=== PATIENT | female | born 1945 | race Caucasian/White ===

== ENCOUNTER 2022-03-08 15:42 | Inpatient (IN) | payer MEDICARE, OTHER ==
[2022-03-08 16:27] LABS: Actual Bicarbonate (HCO3v) 32 mEq/L (22-28); Calcium, Ionized (venous) 1.03 mmol/L (1.16-1.32); Chloride (VBG) 96 mmol/L (98-106); Hemoglobin (Hb) 8.8 g/dL (11.7-16.1); Puncture Site Other Site; Sodium 137.1 mmol/L (133-146); pH (venous) 7.35 (7.32-7.43)
[2022-03-08 16:34] LABS: #Monocytes 0.9 10x3/uL (0.0-1.1); #Neutrophils 12.8 10x3/uL (1.5-8.4); %Basophils 0.3 % (0.0-2.0); %Eosinophils 0.1 % (0.0-6.0); %Lymphocytes 5.3 % (18.0-47.0); %Monocytes 5.8 % (0.0-10.0); %Neutrophils 85.7 % (40.0-75.0); Hemoglobin 7.9 g/dL (12.0-15.5); Mean Corpuscular HGB CONC 29.2 g/dL (32.0-36.0); Mean Corpuscular Hemoglobin 24.9 pg (27.0-33.0); Mean Corpuscular Volume 85.5 fl (81.6-98.3); Mean Platelet Volume 11.2 fl (7.4-10.4); Platelet Count 317 10x3/uL (150-450); Red Blood Cell (RBC) Count 3.17 10x6/uL (3.90-5.03); White Blood Cell (WBC) Count 14.9 10x3/uL (3.5-10.5)
[2022-03-08 16:39] LABS: Albumin 3.4 g/dL (3.4-4.8); Alkaline Phosphatase 86 U/L (40-110); Anion Gap 23 mmol/L (10-20); BUN (Urea Nitrogen) 54 mg/dL (9.8-20.1); Bilirubin, Total 0.6 mg/dL (0.2-1.2); Calc. Creatinine Clearance 0 mL/min (70-130); Calcium 9.2 mg/dL (7.8-10.44); Carbon Dioxide 27 mmol/L (23-31); Chloride 95 mmol/L (98-107); Estimated GFR 15; Globulin 3.5 g/dL (2.4-3.5); Glucose 223 mg/dL (83-110); Protein, Total 6.9 g/dL (5.8-8.1); Sodium 138 mmol/L (136-145)
[2022-03-08 16:50] LABS: Bilirubin 3+ (Negative); Blood, Urine 10 (Negative); Clarity Cloudy (Clear); Glucose, Urine (Dipstick) Normal (Negative); Ketone, Urine Negative (Negative); Leukocyte 25 (Negative); Nitrite Negative (Negative); Protein, Urine (Dipstick) 30 mg/dl (Neg-Trace)
[2022-03-08 16:50] LABS: Potassium 7.1 mmol/L (3.5-5.1)
[2022-03-08 16:51] LABS: ALT (SGPT) 3921 U/L (8-55)
[2022-03-08 16:58] LABS: AST (SGOT) Greater than 3500 U/L (5-34)
[2022-03-08 17:03] LABS: Anisocytosis SLIGHT = 6-15 cells (100X) (0-5/hpf); Hypochromia SLIGHT = 6-15 cells (100X) (0-5/hpf); Platelet Morphology Comment Appears Adequate; Polychromasia SLIGHT = 2-3 cells (100X) (0-2/hpf)
[2022-03-08 17:04] LABS: Bacteria/HPF None Seen HPF (None Seen); RBC/HPF 0-3 HPF (0-3); Squamous Epithelial 0-3 HPF (0-3); WBC/HPF 0-3 HPF (0-3)
[2022-03-08 17:08] LABS: CKMB 1.1 ng/mL (0-6.6)
[2022-03-08 17:26] LABS: SARS-CoV-2 NAA Rapid Test Not Detected (NotDetected)
[2022-03-08] MEDS ORDERED: Calcium Chloride 1 GM/10 ML Abboject SYRINGE ONE (17:31)
[2022-03-08] MEDS ORDERED: Sodium Bicarb 50 MEQ/50 ML VIAL ONE ×4 (17:31→17:32)
[2022-03-08] MEDS ORDERED: Insulin Regular 300 UNITS/3 ML VIAL ONE (17:33)
[2022-03-08] MEDS ORDERED: Cefepime 2 GM VIAL ONE (17:33)
[2022-03-08] MEDS ORDERED: Dextrose 50% Abboject 50 ML SYRINGE ONE (17:33)
[2022-03-08] MEDS ORDERED: Acetylcysteine 20% (200mg/mL) 1 MG in Dextrose 5% in Water 200 ML IVPB SCH (18:00)
[2022-03-08 18:13] LABS: INR-International Normal Ratio 1.5; Prothrombin Time 15.6 sec (9.5-12.1)
[2022-03-08 18:15] LABS: Acetaminophen Less than 10.0 mcg/mL (10.0-30.0); Alcohol Less than 10 mg/dL (Less than 10); Salicylate Less than 8.0 mg/dL (15.0-30.0)
[2022-03-08 19:28] LABS: Lactic Acid 3.1 mmol/L (0.5-2.2)
[2022-03-08 19:33] LABS: Acetaminophen Less than 10.0 mcg/mL (10.0-30.0); Alcohol Less than 10 mg/dL (Less than 10); Salicylate Less than 8.0 mg/dL (15.0-30.0)
[2022-03-08 19:37] LABS: Troponin I 0.143 ng/mL (< 0.028)
[2022-03-08 19:38] LABS: Amphetamine Not Detected (NotDetected); Barbiturates Screen Not Detected (NotDetected); Benzodiazepine Screen Not Detected (NotDetected); Cocaine Metabolite Screen Not Detected (NotDetected); Methadone Not Detected (NotDetected); Methamphetamine Not Detected (NotDetected); Opiate Screen Not Detected (NotDetected); Oxycodone Screen Not Detected (NotDetected); Phencyclidine (PCP) Not Detected (NotDetected); THC/Cannabinoid Screen Not Detected (NotDetected); Tricyclic Screen Not Detected (NotDetected)
[2022-03-08 22:07] VITALS: BMI 52.9
[2022-03-08] MEDS ORDERED: DEXTROSE 5% IV SCH ×2 (22:30→23:30)
[2022-03-08] MEDS ORDERED: ACETYLCYSTEINE IV SCH ×2 (22:30→23:30)
[2022-03-08] MEDS ORDERED: WATER IV SCH ×2 (22:30→23:30)
[2022-03-09] MEDS ORDERED: Guaifenesin DM 100-10/5 ML UDCUP PO PRN (00:05)
[2022-03-09] MEDS ORDERED: Calcium Carbonate 500 MG ChewTAB PO PRN (00:05)
[2022-03-09] MEDS ORDERED: Ondansetron PF 4 MG/2 ML Vial IVP PRN (00:05)
[2022-03-09] MEDS ORDERED: Senokot S 8.6-50 MG TAB PO PRN (00:05)
[2022-03-09] MEDS ORDERED: HumaLOG 300 UNITS/3 ML VIAL SC PRN (00:15)
[2022-03-09] MEDS ORDERED: Pantoprazole 40 MG VIAL IVP SCH (00:15)
[2022-03-09] MEDS ORDERED: Dextrose 50% Abboject 50 ML SYRINGE SLOW IVP PRN (00:15)
[2022-03-09] MEDS ORDERED: Dextrose 5% in Water 1,000 ML IV PRN (00:15)
[2022-03-09] MEDS ORDERED: DEXTROSE 5% IV SCH ×2 (00:30→01:30)
[2022-03-09] MEDS ORDERED: WATER IV SCH ×2 (00:30→01:30)
[2022-03-09] MEDS ORDERED: ACETYLCYSTEINE IV SCH ×2 (00:30→01:30)
[2022-03-09 01:01] LABS: Hep A IgM AB Non-Reactive (NonReactive); Hep A IgM S/CO 0.19 S/CO (0-0.79); Hep C IgG Ab Non-Reactive (NonReactive)
[2022-03-09 01:29] LABS: Hep C Index 0.12 S/CO (0-0.79)
[2022-03-09 02:21] LABS: HBSAg Index 0.34 S/CO (0-0.99); Hep B Surf Ag Non-Reactive S/CO (NonReactive)
[2022-03-09] MEDS ORDERED: Acetylcysteine 20% (200mg/mL) 10,000 MG in Dextrose 5% in Water 950 ML IV SCH ×2 (03:30→05:30)
[2022-03-09 04:28] LABS: Lactic Acid 1.7 mmol/L (0.5-2.2)
[2022-03-09 04:32] LABS: Acetaminophen Less than 10.0 mcg/mL (10.0-30.0); Albumin 3.2 g/dL (3.4-4.8); Alkaline Phosphatase 85 U/L (40-110); Anion Gap 17 mmol/L (10-20); BUN (Urea Nitrogen) 36 mg/dL (9.8-20.1); Bilirubin, Total 0.8 mg/dL (0.2-1.2); CK (CPK) 62 U/L (29-168); Calc. Creatinine Clearance 47 mL/min (70-130); Calcium 8.8 mg/dL (7.8-10.44); Carbon Dioxide 29 mmol/L (23-31); Cardiac Risk 3.3 (Less than 4.5); Chloride 97 mmol/L (98-107); Cholesterol 87 mg/dl (< 200 Desired); Estimated GFR 20; Globulin 3.1 g/dL (2.4-3.5); Glucose 137 mg/dL (83-110); HDL Cholesterol 26 mg/dL (>60 Neg Risk); LDL Cholesterol, Calculated 47 mg/dL; Potassium 4.2 mmol/L (3.5-5.1); Protein, Total 6.3 g/dL (5.8-8.1); Sodium 139 mmol/L (136-145); Triglycerides 68 mg/dL (Less than 150)
[2022-03-09 04:34] LABS: INR-International Normal Ratio 1.4; PTT 25.9 sec (22.0-33.0); Prothrombin Time 14.5 sec (9.5-12.1)
[2022-03-09 04:47] LABS: ALT (SGPT) 4007 U/L (8-55)
[2022-03-09 04:48] LABS: AST (SGOT) Greater than 3500 U/L (5-34)
[2022-03-09 04:53] LABS: CKMB 1.9 ng/mL (0-6.6)
[2022-03-09] MEDS: Levothyroxine 150 MCG TAB PO SCH (05:36)
[2022-03-09 06:05] LABS: #Eosinphils 0.1 10x3/uL (0.0-0.5); #Monocytes 0.6 10x3/uL (0.0-1.1); #Neutrophils 10.5 10x3/uL (1.5-8.4); %Basophils 0.2 % (0.0-2.0); %Eosinophils 0.5 % (0.0-6.0); %Lymphocytes 9.9 % (18.0-47.0); %Monocytes 4.7 % (0.0-10.0); Hemoglobin 7.1 g/dL (12.0-15.5); Mean Corpuscular HGB CONC 30.5 g/dL (32.0-36.0); Mean Corpuscular Hemoglobin 25.2 pg (27.0-33.0); Mean Corpuscular Volume 82.6 fl (81.6-98.3); Mean Platelet Volume 11.3 fl (7.4-10.4); Platelet Count 303 10x3/uL (150-450); RBC Distribution Width 15.9 % (11.5-14.5); Red Blood Cell (RBC) Count 2.82 10x6/uL (3.90-5.03); White Blood Cell (WBC) Count 12.9 10x3/uL (3.5-10.5)
[2022-03-09] MEDS: Pantoprazole 40 MG VIAL IVP SCH ×2 (08:33→20:15)
[2022-03-09] MEDS: FLUoxetine HCl 20 MG CAP PO SCH ×2 (08:34→20:15)
[2022-03-09] MEDS: Metoprolol Tartrate 25 MG TAB PO SCH ×2 (08:35→20:15)
[2022-03-09] MEDS: hydrALAZINE 25 MG TAB PO SCH ×2 (08:35→20:15)
[2022-03-09] MEDS ORDERED: Vancomycin 1 GM in Premix Bag 1 BAG IVPB PRN (09:00)
[2022-03-09] MEDS ORDERED: Apixaban 5 MG TAB PO SCH ×2 (11:30→21:00)
[2022-03-09 12:23] LABS: #Basophils 0.1 10x3/uL (0.0-0.2); #Eosinphils 0.2 10x3/uL (0.0-0.5); #Monocytes 0.6 10x3/uL (0.0-1.1); #Neutrophils 10.3 10x3/uL (1.5-8.4); %Basophils 0.4 % (0.0-2.0); %Eosinophils 1.5 % (0.0-6.0); %Lymphocytes 10.1 % (18.0-47.0); %Neutrophils 80.3 % (40.0-75.0); Hemoglobin 8.4 g/dL (12.0-15.5); Mean Corpuscular HGB CONC 30.3 g/dL (32.0-36.0); Mean Corpuscular Hemoglobin 25.1 pg (27.0-33.0); Mean Corpuscular Volume 82.7 fl (81.6-98.3); Mean Platelet Volume 11.2 fl (7.4-10.4); Platelet Count 296 10x3/uL (150-450); RBC Distribution Width 15.9 % (11.5-14.5); Red Blood Cell (RBC) Count 3.35 10x6/uL (3.90-5.03); White Blood Cell (WBC) Count 12.9 10x3/uL (3.5-10.5)
[2022-03-09 12:25] LABS: Hemoglobin A1c 6.5 % (4.0-6.0)
[2022-03-09 12:37] LABS: Iron 193 ug/dL (50-170); Iron Binding Capacity, Total 209 mcg/dL (265-497)
[2022-03-09] MEDS: HYDROcodone/Acetaminophen 5/325 mg Tablet PO PRN ×2 (17:14→21:41)
[2022-03-09 18:10] LABS: Legionella Urinary Ag Negative (Negative); Strep pneumo Urine Ag NEGATIVE (NEGATIVE)
[2022-03-09] MEDS: Cefepime 1 GM in Sodium Chloride 0.9% 100 ML IVPB SCH (18:39)
[2022-03-09 19:42] LABS: Hemoglobin 8.4 g/dL (12.0-15.5); Platelet Count 292 10x3/uL (150-450)
[2022-03-09 19:56] LABS: Vancomycin, Random 4.9 ug/mL (See Comment)
[2022-03-09] MEDS: Heparin 10,000 UNITS/ 10 ML VIAL SLOW IVP SCH (20:16)
[2022-03-09] MEDS: Heparin 25,000 units/D5W 500 ML IVPB SCH (20:20)
[2022-03-09] MEDS ORDERED: VANCOMYCIN 2 GRAM/400 ML BAG 2 GM in Premix Bag 1 BAG IVPB SCH (21:00)
[2022-03-10 02:31] LABS: #Basophils 0.1 10x3/uL (0.0-0.2); #Eosinphils 0.4 10x3/uL (0.0-0.5); #Monocytes 0.9 10x3/uL (0.0-1.1); #Neutrophils 9.5 10x3/uL (1.5-8.4); %Basophils 0.5 % (0.0-2.0); %Eosinophils 2.9 % (0.0-6.0); %Lymphocytes 12.2 % (18.0-47.0); %Monocytes 6.7 % (0.0-10.0); %Neutrophils 74.5 % (40.0-75.0); Hemoglobin 8.6 g/dL (12.0-15.5); Mean Corpuscular HGB CONC 31.9 g/dL (32.0-36.0); Mean Corpuscular Volume 81.6 fl (81.6-98.3); Platelet Count 272 10x3/uL (150-450); RBC Distribution Width 15.9 % (11.5-14.5); Red Blood Cell (RBC) Count 3.31 10x6/uL (3.90-5.03); White Blood Cell (WBC) Count 12.7 10x3/uL (3.5-10.5)
[2022-03-10 02:46] LABS: ALT (SGPT) 2919 U/L (8-55); AST (SGOT) 1926 U/L (5-34); Albumin 3.1 g/dL (3.4-4.8); Alkaline Phosphatase 94 U/L (40-110); Anion Gap 17 mmol/L (10-20); BUN (Urea Nitrogen) 54 mg/dL (9.8-20.1); Bilirubin, Direct 0.4 mg/dL (0.1-0.3); Bilirubin, Total 0.7 mg/dL (0.2-1.2); Calc. Creatinine Clearance 46 mL/min (70-130); Calcium 8.5 mg/dL (7.8-10.44); Carbon Dioxide 29 mmol/L (23-31); Chloride 95 mmol/L (98-107); Estimated GFR 19; Glucose 119 mg/dL (83-110); Potassium 4.3 mmol/L (3.5-5.1); Protein, Total 6.3 g/dL (5.8-8.1); Sodium 137 mmol/L (136-145)
[2022-03-10 02:49] LABS: INR-International Normal Ratio 1.3; Prothrombin Time 14.1 sec (9.5-12.1)
[2022-03-10] MEDS: Levothyroxine 150 MCG TAB PO SCH (06:11)
[2022-03-10] MEDS: FLUoxetine HCl 20 MG CAP PO SCH ×2 (08:09→20:30)
[2022-03-10] MEDS: Pantoprazole 40 MG VIAL IVP SCH ×2 (08:09→21:45)
[2022-03-10] MEDS: hydrALAZINE 25 MG TAB PO SCH ×2 (08:11→20:31)
[2022-03-10] MEDS: Heparin 25,000 units/D5W 500 ML IVPB SCH (08:44)
[2022-03-10] MEDS: Heparin 10,000 UNITS/ 10 ML VIAL SLOW IVP SCH (08:54)
[2022-03-10] MEDS ORDERED: Apixaban 5 MG TAB PO SCH (09:30)
[2022-03-10] MEDS: Metoprolol Tartrate 25 MG TAB PO SCH ×2 (10:21→20:30)
[2022-03-10] MEDS: traMADol HCl 50 MG TAB PO PRN ×2 (10:28→21:07)
[2022-03-10] MEDS: Cefepime 1 GM in Sodium Chloride 0.9% 100 ML IVPB SCH (16:53)
[2022-03-10 19:20] LABS: Vancomycin, Random 16.9 ug/mL (See Comment)
[2022-03-10] MEDS: Apixaban 5 MG TAB PO SCH (20:30)
[2022-03-11 05:10] LABS: #Basophils 0.1 10x3/uL (0.0-0.2); #Eosinphils 0.3 10x3/uL (0.0-0.5); #Monocytes 1.2 10x3/uL (0.0-1.1); #Neutrophils 8.4 10x3/uL (1.5-8.4); %Basophils 0.4 % (0.0-2.0); %Eosinophils 2.8 % (0.0-6.0); %Lymphocytes 10.8 % (18.0-47.0); %Monocytes 10.1 % (0.0-10.0); %Neutrophils 72.3 % (40.0-75.0); Hemoglobin 8.3 g/dL (12.0-15.5); Mean Corpuscular HGB CONC 31.6 g/dL (32.0-36.0); Mean Corpuscular Hemoglobin 25.6 pg (27.0-33.0); Mean Corpuscular Volume 81.2 fl (81.6-98.3); Mean Platelet Volume 11.2 fl (7.4-10.4); Platelet Count 270 10x3/uL (150-450); RBC Distribution Width 15.9 % (11.5-14.5); Red Blood Cell (RBC) Count 3.24 10x6/uL (3.90-5.03); White Blood Cell (WBC) Count 11.7 10x3/uL (3.5-10.5)
[2022-03-11 05:18] LABS: INR-International Normal Ratio 1.2; Prothrombin Time 13.3 sec (9.5-12.1)
[2022-03-11 05:26] LABS: ALT (SGPT) 1874 U/L (8-55); AST (SGOT) 602 U/L (5-34); Albumin 3.1 g/dL (3.4-4.8); Alkaline Phosphatase 98 U/L (40-110); Anion Gap 13 mmol/L (10-20); BUN (Urea Nitrogen) 51 mg/dL (9.8-20.1); Bilirubin, Direct 0.4 mg/dL (0.1-0.3); Bilirubin, Total 0.8 mg/dL (0.2-1.2); Calc. Creatinine Clearance 63 mL/min (70-130); Calcium 8.9 mg/dL (7.8-10.44); Carbon Dioxide 29 mmol/L (23-31); Chloride 96 mmol/L (98-107); Estimated GFR 28; Glucose 79 mg/dL (83-110); Potassium 3.9 mmol/L (3.5-5.1); Protein, Total 6.3 g/dL (5.8-8.1); Sodium 134 mmol/L (136-145)
[2022-03-11] MEDS: Levothyroxine 150 MCG TAB PO SCH (06:51)
[2022-03-11] MEDS ORDERED: Cefepime 1 GM in Sodium Chloride 0.9% 100 ML IVPB SCH (08:00)
[2022-03-11] MEDS: Pantoprazole 40 MG VIAL IVP SCH ×2 (09:05→20:52)
[2022-03-11] MEDS: hydrALAZINE 25 MG TAB PO SCH ×2 (09:06→20:38)
[2022-03-11] MEDS: FLUoxetine HCl 20 MG CAP PO SCH ×2 (09:06→20:37)
[2022-03-11] MEDS: Apixaban 5 MG TAB PO SCH ×2 (09:06→20:37)
[2022-03-11] MEDS: Metoprolol Tartrate 25 MG TAB PO SCH ×2 (09:06→20:38)
[2022-03-11 10:57] LABS: ANA Symphony (Qualitative) Negative (Negative); ANA Symphony (Quantitative) 0.4 Ratio (< 0.7 Negative); EliA Vaculitis New Method **** NEW METHOD ****; Mitochondrial Ab 2.8 U/mL (<4 Negative); dsDNA IgG Antibody 2.6 IU/mL (<10 Negative)
[2022-03-11 19:26] LABS: Hemoglobin 8.2 g/dL (12.0-15.5); Platelet Count 262 10x3/uL (150-450)
[2022-03-11] MEDS: Acetaminophen 325 MG TAB PO PRN (22:18)
[2022-03-12 04:13] LABS: Hep B Surface AG-Rflx Sendout Negative (Negative); Hepatitis B Core Total Negative (Negative); Hepatitis B Surface AB-Sendout Non Reactive (.)
[2022-03-12 05:46] LABS: INR-International Normal Ratio 1.2; Prothrombin Time 13.2 sec (9.5-12.1)
[2022-03-12] MEDS: Levothyroxine 150 MCG TAB PO SCH (06:00)
[2022-03-12 06:07] LABS: ALT (SGPT) 1196 U/L (8-55); AST (SGOT) 211 U/L (5-34); Alkaline Phosphatase 102 U/L (40-110); Anion Gap 14 mmol/L (10-20); BUN (Urea Nitrogen) 50 mg/dL (9.8-20.1); Bilirubin, Direct 0.5 mg/dL (0.1-0.3); Bilirubin, Total 0.9 mg/dL (0.2-1.2); Calc. Creatinine Clearance 73 mL/min (70-130); Calcium 8.8 mg/dL (7.8-10.44); Carbon Dioxide 30 mmol/L (23-31); Chloride 99 mmol/L (98-107); Estimated GFR 35; Glucose 87 mg/dL (83-110); Potassium 3.9 mmol/L (3.5-5.1); Protein, Total 6.2 g/dL (5.8-8.1); Sodium 139 mmol/L (136-145)
[2022-03-12] MEDS: Pantoprazole 40 MG VIAL IVP SCH ×2 (08:38→20:01)
[2022-03-12] MEDS: hydrALAZINE 25 MG TAB PO SCH ×2 (08:38→20:02)
[2022-03-12] MEDS: FLUoxetine HCl 20 MG CAP PO SCH ×2 (08:39→20:00)
[2022-03-12] MEDS: Apixaban 5 MG TAB PO SCH ×2 (08:39→20:01)
[2022-03-12] MEDS: Metoprolol Tartrate 25 MG TAB PO SCH ×2 (08:39→20:01)
[2022-03-12] MEDS: traMADol HCl 50 MG TAB PO PRN ×2 (11:13→17:52)
[2022-03-12] MEDS ORDERED: Polyethylene Glycol 3350 17 GM Packet PO SCH (13:00)
[2022-03-12] MEDS: Acetaminophen 325 MG TAB PO PRN (20:01)
[2022-03-13] MEDS: Acetaminophen 325 MG TAB PO PRN ×2 (03:41→10:06)
[2022-03-13 05:04] LABS: INR-International Normal Ratio 1.2; Prothrombin Time 12.4 sec (9.5-12.1)
[2022-03-13 05:09] LABS: ALT (SGPT) 891 U/L (8-55); AST (SGOT) 107 U/L (5-34); Albumin 3.2 g/dL (3.4-4.8); Alkaline Phosphatase 133 U/L (40-110); Bilirubin, Direct 0.4 mg/dL (0.1-0.3); Bilirubin, Total 0.7 mg/dL (0.2-1.2); Protein, Total 6.5 g/dL (5.8-8.1)
[2022-03-13] MEDS: Levothyroxine 150 MCG TAB PO SCH (05:52)
[2022-03-13] MEDS: traMADol HCl 50 MG TAB PO PRN (05:57)
[2022-03-13] MEDS: hydrALAZINE 25 MG TAB PO SCH (10:07)
[2022-03-13] MEDS: FLUoxetine HCl 20 MG CAP PO SCH (10:07)
[2022-03-13] MEDS: Apixaban 5 MG TAB PO SCH (10:07)
[2022-03-13] MEDS: Metoprolol Tartrate 25 MG TAB PO SCH (10:07)
[2022-03-13] MEDS: Pantoprazole 40 MG VIAL IVP SCH (10:08)
[2022-03-13 11:35] VITALS: BP 144/59; TEMP 97.9
[2022-03-13 11:58] LABS: Anion Gap 12 mmol/L (10-20); BUN (Urea Nitrogen) 51 mg/dL (9.8-20.1); Calc. Creatinine Clearance 79 mL/min (70-130); Calcium 9.2 mg/dL (7.8-10.44); Carbon Dioxide 32 mmol/L (23-31); Chloride 98 mmol/L (98-107); Estimated GFR 38; Glucose 101 mg/dL (83-110); Sodium 138 mmol/L (136-145)
== END 2022-03-13 14:31 | disposition home or self-care (01) | DRG 682 ==
LOC: CSHERS 15:42 → CSHICU 21:40 → CSHTELE 03-10 15:29
PROVIDERS: ADMIT Student in an Organized Health Care Education/Training Program; ATTEND Internal Medicine
PROC: 30233N1 Transfusion of Nonautologous Red Blood Cells into Peripheral Vein, Percutaneous Approach (ICD-10-PCS; principal; 2022-03-08)
PROC: 06HY33Z Insertion of Infusion Device into Lower Vein, Percutaneous Approach (ICD-10-PCS; 2022-03-08)
PROC: 5A1D70Z Performance of Urinary Filtration, Intermittent, Less than 6 Hours Per Day (ICD-10-PCS; 2022-03-08)
DX: N17.9 Acute kidney failure, unspecified (principal); J96.01 Acute respiratory failure with hypoxia; G93.41 Metabolic encephalopathy; K72.00 Acute and subacute hepatic failure without coma; N39.0 Urinary tract infection, site not specified; J98.11 Atelectasis; I82.413 Acute embolism and thrombosis of femoral vein, bilateral; Z68.43 Body mass index [BMI] 50.0-59.9, adult; E87.2 Acidosis; I13.11 Hypertensive heart and chronic kidney disease without heart failure, with stage 5 chronic kidney disease, or end stage renal disease; E03.9 Hypothyroidism, unspecified; E78.5 Hyperlipidemia, unspecified; F32.A Depression, unspecified; E87.5 Hyperkalemia; E66.01 Morbid (severe) obesity due to excess calories; D46.9 Myelodysplastic syndrome, unspecified; I45.10 Unspecified right bundle-branch block; E11.65 Type 2 diabetes mellitus with hyperglycemia; Z20.822 Contact with and (suspected) exposure to COVID-19; D63.1 Anemia in chronic kidney disease; E11.22 Type 2 diabetes mellitus with diabetic chronic kidney disease; E88.09 Other disorders of plasma-protein metabolism, not elsewhere classified; N18.30 Chronic kidney disease, stage 3 unspecified; N18.6 End stage renal disease; R91.1 Solitary pulmonary nodule; Z88.8 Allergy status to other drugs, medicaments and biological substances; Z79.899 Other long term (current) drug therapy; T45.4X5A Adverse effect of iron and its compounds, initial encounter; Z90.710 Acquired absence of both cervix and uterus
CPT/HCPCS: 36415; 36416; 36430; 36556; 51701; 71045; 71250; 72100; 74176; 76705; 80048; 80053; 80061; 80076; 80143; 80202; 80306; 80307; 81003; 81015; 81256; 82140; 82274; 82390; 82550; 82553; 82728; 82805; 83036; 83516; 83540; 83550; 83605; 83615; 83880; 84145; 84466; 84484; 85014; 85018; 85025; 85049; 85610; 85730; 86015; 86038; 86225; 86704; 86706; 86708; 86709; 86803; 86850; 86900; 86901; 87040; 87086; 87340; 87449; 87497; 87899; 90935; 93005; 93010; 93306; 93970; 94760; 96365; 96375; C9113; G0257; J0132; J0692; J1644; J1815; J3370; J3490; J7070; J7999; P9016

== ENCOUNTER 2022-03-19 15:45 | Emergency (ER) | payer MEDICARE, OTHER ==
[2022-03-19 16:33] LABS: #Eosinphils 0.3 10x3/uL (0.0-0.5); #Monocytes 0.6 10x3/uL (0.0-1.1); #Neutrophils 4.8 10x3/uL (1.5-8.4); %Basophils 0.4 % (0.0-2.0); %Lymphocytes 16.3 % (18.0-47.0); %Monocytes 9.2 % (0.0-10.0); %Neutrophils 69.1 % (40.0-75.0); Hemoglobin 8.4 g/dL (12.0-15.5); Mean Corpuscular HGB CONC 29.5 g/dL (32.0-36.0); Mean Corpuscular Hemoglobin 24.7 pg (27.0-33.0); Mean Corpuscular Volume 83.8 fl (81.6-98.3); Mean Platelet Volume 11.8 fl (7.4-10.4); Platelet Count 320 10x3/uL (150-450); RBC Distribution Width 16.1 % (11.5-14.5)
[2022-03-19 17:02] LABS: ALT (SGPT) 134 U/L (8-55); AST (SGOT) 23 U/L (5-34); Albumin 3.1 g/dL (3.4-4.8); Alkaline Phosphatase 106 U/L (40-110); Anion Gap 14 mmol/L (10-20); BUN (Urea Nitrogen) 32 mg/dL (9.8-20.1); Bilirubin, Total 0.5 mg/dL (0.2-1.2); Calc. Creatinine Clearance 0 mL/min (70-130); Calcium 8.4 mg/dL (7.8-10.44); Carbon Dioxide 30 mmol/L (23-31); Chloride 103 mmol/L (98-107); Estimated GFR 45; Globulin 2.6 g/dL (2.4-3.5); Glucose 94 mg/dL (83-110); Protein, Total 5.7 g/dL (5.8-8.1); Sodium 142 mmol/L (136-145)
[2022-03-19 18:18] LABS: Anisocytosis SLIGHT = 6-15 cells (100X) (0-5/hpf); Hypochromia SLIGHT = 6-15 cells (100X) (0-5/hpf); Microcytosis SLIGHT = 6-15 cells (100X) (0-5/hpf); Ovalocytes SLIGHT = 2-5 cells (100X) (0-1/hpf)
[2022-03-19 18:19] LABS: Large Platelets SLIGHT; Platelet Morphology Comment Appears Adequate
== END 2022-03-19 22:33 ==
LOC: CSHERS 15:45
DX: Z49.01 Encounter for fitting and adjustment of extracorporeal dialysis catheter (principal); R53.83 Other fatigue; E11.9 Type 2 diabetes mellitus without complications; E03.9 Hypothyroidism, unspecified; E78.5 Hyperlipidemia, unspecified; I10 Essential (primary) hypertension
CPT/HCPCS: 36415; 71045; 80053; 83605; 84484; 85025; 87040; 93005; 94760

== ENCOUNTER 2022-08-04 10:59 | Emergency (ER) | payer MEDICARE, OTHER ==
[2022-08-04 11:56] LABS: #Eosinphils 0.2 10x3/uL (0.0-0.5); #Monocytes 1.2 10x3/uL (0.0-1.1); #Neutrophils 8.9 10x3/uL (1.5-8.4); %Basophils 0.2 % (0.0-2.0); %Eosinophils 1.2 % (0.0-6.0); %Lymphocytes 15.7 % (18.0-47.0); %Monocytes 9.5 % (0.0-10.0); %Neutrophils 70.9 % (40.0-75.0); Hemoglobin 6.9 g/dL (12.0-15.5); Mean Corpuscular HGB CONC 29.7 g/dL (32.0-36.0); Mean Corpuscular Hemoglobin 25.2 pg (27.0-33.0); Mean Corpuscular Volume 84.7 fl (81.6-98.3); Mean Platelet Volume 9.5 fl (7.4-10.4); Platelet Count 532 10x3/uL (150-450); RBC Distribution Width 17.4 % (11.5-14.5); Red Blood Cell (RBC) Count 2.74 10x6/uL (3.90-5.03); White Blood Cell (WBC) Count 12.6 10x3/uL (3.5-10.5)
[2022-08-04 12:12] LABS: ALT (SGPT) 11 U/L (8-55); AST (SGOT) 12 U/L (5-34); Albumin 2.1 g/dL (3.4-4.8); Alkaline Phosphatase 187 U/L (40-110); Anion Gap 13 mmol/L (10-20); BUN (Urea Nitrogen) 31 mg/dL (9.8-20.1); Bilirubin, Total 0.6 mg/dL (0.2-1.2); Calc. Creatinine Clearance 0 mL/min (70-130); Calcium 8.2 mg/dL (7.8-10.44); Carbon Dioxide 29 mmol/L (23-31); Chloride 97 mmol/L (98-107); Estimated GFR 61; Globulin 3.1 g/dL (2.4-3.5); Glucose 224 mg/dL (83-110); Potassium 4.8 mmol/L (3.5-5.1); Protein, Total 5.2 g/dL (5.8-8.1); Sodium 134 mmol/L (136-145)
[2022-08-04 12:53] LABS: SARS-CoV-2 NAA Rapid Test Not Detected (NotDetected)
[2022-08-04 14:10] LABS: Bilirubin Neg (Negative); Blood, Urine 10 (Negative); Clarity Cloudy (Clear); Glucose, Urine (Dipstick) Normal (Negative); Ketone, Urine Negative (Negative); Leukocyte 500 (Negative); Nitrite Positive (Negative); Protein, Urine (Dipstick) 15 mg/dl (Neg-Trace); pH, Urine 6.5 (5.0-9.0)
[2022-08-04 14:17] LABS: WBC/HPF 21-50 HPF (0-3)
[2022-08-04 14:18] LABS: Bacteria/HPF 4+ HPF (None Seen); Mucous/LPF 1+ LPF (<2+); RBC/HPF 0-3 HPF (0-3); Squamous Epithelial 21-50 HPF (0-3)
[2022-08-04] MEDS ORDERED: cefTRIAXone\\ROCEPHIN 1 GM VIAL ONE (14:27)
== END 2022-08-04 14:23 | disposition home or self-care (01) ==
LOC: CSHERS 10:59
DX: N39.0 Urinary tract infection, site not specified (principal); E03.9 Hypothyroidism, unspecified; E78.5 Hyperlipidemia, unspecified; I10 Essential (primary) hypertension; E66.9 Obesity, unspecified; E11.9 Type 2 diabetes mellitus without complications; Z20.822 Contact with and (suspected) exposure to COVID-19
CPT/HCPCS: 0240U; 71045; 80053; 83605; 85025; 86850; 86900; 86901; 87040; 87086; 87186; 93005; 36415; 81003; 81015; 96365; J0696

== ENCOUNTER 2022-08-20 18:47 | Inpatient (IN) | payer MEDICARE, OTHER ==
[2022-08-20 19:54] LABS: #Eosinphils 0.2 10x3/uL (0.0-0.5); #Neutrophils 12.5 10x3/uL (1.5-8.4); %Basophils 0.2 % (0.0-2.0); %Eosinophils 1.4 % (0.0-6.0); %Lymphocytes 10.6 % (18.0-47.0); %Monocytes 6.5 % (0.0-10.0); %Neutrophils 79.3 % (40.0-75.0); Hemoglobin 6.4 g/dL (12.0-15.5); Mean Corpuscular HGB CONC 30.5 g/dL (32.0-36.0); Mean Corpuscular Hemoglobin 25.2 pg (27.0-33.0); Mean Corpuscular Volume 82.7 fl (81.6-98.3); Mean Platelet Volume 9.5 fl (7.4-10.4); Platelet Count 671 10x3/uL (150-450); RBC Distribution Width 16.2 % (11.5-14.5); Red Blood Cell (RBC) Count 2.54 10x6/uL (3.90-5.03); White Blood Cell (WBC) Count 15.8 10x3/uL (3.5-10.5)
[2022-08-20 20:06] LABS: ALT (SGPT) 8 U/L (8-55); AST (SGOT) 9 U/L (5-34); Albumin 2.2 g/dL (3.4-4.8); Alkaline Phosphatase 194 U/L (40-110); Anion Gap 13 mmol/L (10-20); BUN (Urea Nitrogen) 20 mg/dL (9.8-20.1); Bilirubin, Total 0.6 mg/dL (0.2-1.2); Calc. Creatinine Clearance 0 mL/min (70-130); Calcium 8.7 mg/dL (7.8-10.44); Carbon Dioxide 31 mmol/L (23-31); Chloride 90 mmol/L (98-107); Estimated GFR 82; Globulin 3.6 g/dL (2.4-3.5); Glucose 222 mg/dL (83-110); Potassium 3.9 mmol/L (3.5-5.1); Protein, Total 5.8 g/dL (5.8-8.1); Sodium 130 mmol/L (136-145)
[2022-08-20 23:11] VITALS: BMI 40.7
[2022-08-21 02:25] LABS: #Eosinphils 0.2 10x3/uL (0.0-0.5); #Monocytes 0.9 10x3/uL (0.0-1.1); #Neutrophils 10.6 10x3/uL (1.5-8.4); %Basophils 0.2 % (0.0-2.0); %Eosinophils 1.4 % (0.0-6.0); %Lymphocytes 11.8 % (18.0-47.0); %Monocytes 6.3 % (0.0-10.0); %Neutrophils 78.3 % (40.0-75.0); Hemoglobin 7.1 g/dL (12.0-15.5); Mean Corpuscular HGB CONC 31.3 g/dL (32.0-36.0); Mean Corpuscular Hemoglobin 25.4 pg (27.0-33.0); Mean Corpuscular Volume 81.4 fl (81.6-98.3); Mean Platelet Volume 9.3 fl (7.4-10.4); Platelet Count 626 10x3/uL (150-450); RBC Distribution Width 15.5 % (11.5-14.5); Red Blood Cell (RBC) Count 2.79 10x6/uL (3.90-5.03); White Blood Cell (WBC) Count 13.5 10x3/uL (3.5-10.5)
[2022-08-21] MEDS ORDERED: traMADol HCl 50 MG TAB PO PRN (03:03)
[2022-08-21] MEDS ORDERED: Ondansetron ODT 4 MG TAB PO PRN (03:03)
[2022-08-21] MEDS ORDERED: Metoprolol Tartrate 25 MG TAB PO SCH (03:30)
[2022-08-21] MEDS ORDERED: Dextrose 50% Abboject 50 ML SYRINGE SLOW IVP PRN (04:01)
[2022-08-21] MEDS ORDERED: Dextrose 5% in Water 1,000 ML IV PRN (04:01)
[2022-08-21 05:00] LABS: SARS-CoV-2 NAA Rapid Test Not Detected (NotDetected)
[2022-08-21 06:00] LABS: Hemoglobin 7.1 g/dL (12.0-15.5)
[2022-08-21 06:11] LABS: Anion Gap 13 mmol/L (10-20); BUN (Urea Nitrogen) 18 mg/dL (9.8-20.1); Calc. Creatinine Clearance 129 mL/min (70-130); Calcium 8.4 mg/dL (7.8-10.44); Carbon Dioxide 31 mmol/L (23-31); Chloride 92 mmol/L (98-107); Estimated GFR 90; Glucose 188 mg/dL (83-110); Sodium 132 mmol/L (136-145)
[2022-08-21] MEDS: Liothyronine Sodium 5 MCG TAB PO SCH (06:37)
[2022-08-21] MEDS: HumaLOG 300 UNITS/3 ML VIAL SC PRN ×2 (06:37→21:55)
[2022-08-21] MEDS: Levothyroxine 150 MCG TAB PO SCH (06:37)
[2022-08-21] MEDS: Apixaban 5 MG TAB PO SCH ×2 (10:18→21:53)
[2022-08-21] MEDS: FLUoxetine HCl 20 MG CAP PO SCH (10:18)
[2022-08-21] MEDS: Atorvastatin Calcium 40 MG TAB PO SCH (10:18)
[2022-08-21] MEDS: Gabapentin 100 MG CAP PO SCH ×3 (10:18→21:53)
[2022-08-21] MEDS: Furosemide 40 MG TAB PO SCH (10:18)
[2022-08-21] MEDS: Metoprolol Tartrate 25 MG TAB PO SCH ×2 (10:19→21:53)
[2022-08-21] MEDS: Polyethylene Glycol 3350 17 GM Packet PO SCH (10:20)
[2022-08-21] MEDS: Senokot 8.6 MG TAB PO SCH ×2 (10:20→21:54)
[2022-08-21] MEDS: Zinc Gluconate 50 MG TAB PO SCH (10:20)
[2022-08-21] MEDS: hydrALAZINE 25 MG TAB PO SCH ×3 (10:21→21:54)
[2022-08-22 04:48] LABS: #Eosinphils 0.1 10x3/uL (0.0-0.5); #Monocytes 1.2 10x3/uL (0.0-1.1); #Neutrophils 12.7 10x3/uL (1.5-8.4); %Basophils 0.1 % (0.0-2.0); %Eosinophils 0.9 % (0.0-6.0); %Lymphocytes 9.9 % (18.0-47.0); %Monocytes 7.3 % (0.0-10.0); %Neutrophils 79.7 % (40.0-75.0); Hemoglobin 7.2 g/dL (12.0-15.5); Mean Corpuscular Hemoglobin 25.6 pg (27.0-33.0); Mean Corpuscular Volume 82.6 fl (81.6-98.3); Mean Platelet Volume 9.4 fl (7.4-10.4); Platelet Count 571 10x3/uL (150-450); RBC Distribution Width 15.8 % (11.5-14.5); Red Blood Cell (RBC) Count 2.81 10x6/uL (3.90-5.03)
[2022-08-22 05:06] LABS: Anion Gap 15 mmol/L (10-20); BUN (Urea Nitrogen) 16 mg/dL (9.8-20.1); Calc. Creatinine Clearance 125 mL/min (70-130); Calcium 8.5 mg/dL (7.8-10.44); Carbon Dioxide 28 mmol/L (23-31); Chloride 93 mmol/L (98-107); Estimated GFR 89; Glucose 192 mg/dL (83-110); Potassium 3.9 mmol/L (3.5-5.1); Sodium 132 mmol/L (136-145)
[2022-08-22] MEDS: Levothyroxine 150 MCG TAB PO SCH (05:40)
[2022-08-22] MEDS: Liothyronine Sodium 5 MCG TAB PO SCH (05:40)
[2022-08-22] MEDS: Metoprolol Tartrate 25 MG TAB PO SCH (09:53)
[2022-08-22] MEDS: Atorvastatin Calcium 40 MG TAB PO SCH (09:53)
[2022-08-22] MEDS: Apixaban 5 MG TAB PO SCH (09:53)
[2022-08-22] MEDS: Gabapentin 100 MG CAP PO SCH ×2 (09:54→17:50)
[2022-08-22] MEDS: hydrALAZINE 25 MG TAB PO SCH ×2 (09:54→09:55)
[2022-08-22] MEDS: Senokot 8.6 MG TAB PO SCH (09:54)
[2022-08-22] MEDS: Furosemide 40 MG TAB PO SCH (09:54)
[2022-08-22] MEDS: Zinc Gluconate 50 MG TAB PO SCH (09:54)
[2022-08-22] MEDS: FLUoxetine HCl 20 MG CAP PO SCH (09:55)
[2022-08-22] MEDS: Polyethylene Glycol 3350 17 GM Packet PO SCH (09:55)
[2022-08-22] MEDS: HumaLOG 300 UNITS/3 ML VIAL SC PRN (12:38)
[2022-08-22 18:19] VITALS: BP 123/57; TEMP 98.1
== END 2022-08-22 19:20 | DRG 812 ==
LOC: CSHERS 18:47 → CSHTELE 23:01 → OBSVTOIN 08-22 10:58
PROVIDERS: ADMIT Family Medicine; ATTEND Internal Medicine
PROC: 30233N1 Transfusion of Nonautologous Red Blood Cells into Peripheral Vein, Percutaneous Approach (ICD-10-PCS; principal; 2022-08-20)
DX: D46.9 Myelodysplastic syndrome, unspecified (principal); J96.11 Chronic respiratory failure with hypoxia; Z68.41 Body mass index [BMI] 40.0-44.9, adult; D50.9 Iron deficiency anemia, unspecified; Z66 Do not resuscitate; E66.01 Morbid (severe) obesity due to excess calories; I10 Essential (primary) hypertension; E78.5 Hyperlipidemia, unspecified; E11.65 Type 2 diabetes mellitus with hyperglycemia; I48.91 Unspecified atrial fibrillation; Z20.822 Contact with and (suspected) exposure to COVID-19; F32.A Depression, unspecified; Z79.01 Long term (current) use of anticoagulants; Z86.718 Personal history of other venous thrombosis and embolism; Z88.8 Allergy status to other drugs, medicaments and biological substances; Z90.710 Acquired absence of both cervix and uterus; Z98.890 Other specified postprocedural states; Z79.890 Hormone replacement therapy; Z79.899 Other long term (current) drug therapy; E89.0 Postprocedural hypothyroidism
CPT/HCPCS: 36415; 36416; 36430; 80048; 80053; 82274; 82607; 83540; 84443; 85025; 86850; 86900; 86901; 93005; J1815; P9016; U0002